=== PATIENT | male | born 1955 | race Two or more races ===

== ENCOUNTER 2023-08-12 05:46 | Emergency (ER) | payer MEDICARE, OTHER, SELFPAY ==
[2023-08-12 05:51] VITALS: BP 163/107
[2023-08-12] MEDS: TORADOL 15 MG IV (06:52)
[2023-08-12] MEDS: DILAUDID 0.5 MG IV ×2 (06:53→08:04)
[2023-08-12 07:32] VITALS: BP 138/87
--- NOTE | 2023-08-12 07:53 | ED.GENMED ---
History of Present Illness
General
Chief Complaint: Back Pain
Time Seen by Provider: 08/12/23 06:16
Travel History
Have you had any contact with someone who has COVID-19?: No
Do you have any symptoms of coronavirus? Fever > 100 degrees, chills, cough, shortness of breath, sore throat, loss of taste or smell, muscle aches, or headache?: No
History of Present Illness
History of Present Illness:
67-year-old male started yesterday with right-sided back pain some radiation at times to the right leg. No bowel or bladder issues. None no numbness tingling or weakness no fever no abdominal pain. Long history of back issues
Past History
Past History
ED Past Medical History: HTN, IDDM, Psychiatric (Anxiety, ) and Other (Sleep apnea, Stomach Ulcers, Hiatal hernia)
ED Past Surgical History: Orthopedic (R and L hip replacement, Left hand tendon repair, Right and left knee surgery, Right shoulder Surgery X 2, Vertebral spacer placed and then removed, Spinal stimulator. Right Carpal tunnel) and Other (Previous
trauma surgery, Incisional surgery for hernia X 8)
Social History
Tobacco: Former smoker
Alcohol: None
Drug: Narcotics
Personal:
Living: with family
Review of Systems
Review of Systems
All Other Systems: Not applicable
Constitutional: Denies fever
ABD/GI: Reports no symptoms
: Reports no symptoms
Phy Exam
Physical Exam
Physical Exam:
GENERAL: Alert and oriented in no apparent distress, but appears mildly uncomfortable
EYE: Orbits normal.
NECK: Supple
CARDIAC: Regular rate and rhythm without any obvious murmurs.
LUNGS: Clear breath sounds,normal
ABDOMEN: Soft, without focal tenderness or distention
NEUROLOGICAL: Alert and oriented , grossly non-focal
SKIN: Warm and dry, no rash or lesion, no discoloration, skin intact.
MUSCULOSKELETAL: No edema,no deformity.Good color. Right lower paralumbar tenderness near the SI joint. Stimulator site appears well without erythema swelling or drainage patient's right leg feels better flexed at the hip. Good distal strength.
Good distal color. Good distal pulses. No weakness. Able to ambulate but slightly hunched over and feels better in flexion and extension at the hip
PSYCH: Normal and appropriate interaction.
Course
Orders/Labs/Results
Orders:
Orders
08/12/23 06:46
IV Insert/Care/Rem.- Treatment PRN
HYDROmorphone [Dilaudid] 0.5 mg IV NOW STA
Ketorolac [Toradol] 15 mg IV NOW STA
Hip, Right 2-3 Views [CR Hip - RT w/wo Pel 2-3 Vw*] Urgent
Comment:
Reason For Exam: Nontraumatic low back pain
Include a pelvis x-ray?: Yes
Lumbar Spine, 2 or 3 View [CR Lumbar Spine 2 Or 3 Views] Urgent
Comment:
Reason For Exam: Nontraumatic low back pain
08/12/23 07:53
HYDROmorphone [Dilaudid] 0.5 mg IV NOW STA
Vital Signs
Initial and Last Documented VS:
Initial Vital Signs
Temp Pulse Resp BP Pulse Ox
97.6 F 82 20 163/107 98
08/12/23 05:51 08/12/23 05:51 08/12/23 05:51 08/12/23 05:51 08/12/23 05:51
Last Documented Vital Signs
Temp Pulse Resp BP Pulse Ox
97.6 F 95 16 138/87 99
08/12/23 05:51 08/12/23 07:32 08/12/23 07:32 08/12/23 07:32 08/12/23 07:32
*Critical Care Note
Total Time (30-74mins, 75-104mins- exclusive of procedures): Not Applicable
Update Note
Update Note:
0755.... Patient's symptoms are moderately improved. He is currently sitting in the chair in no distress. Clearly positional symptoms. I do not feel this is a kidney issue or other intra-abdominal process. No fever no bowel or bladder issues no
acute neurologic symptoms. Pain management follow-up.
ED Attending Note
-
Portions of this chart may have been created with voice recognition software.� Occasional wrong word or��sound alike� substitutions may have occurred due to the inherent limitations of voice recognition software.
Discharge Plan
Departure
Patient Disposition: Home (Routine Discharge)
Date of Disposition: 08/12/23
Time of Disposition: 07:54
Patient with high blood pressure during this ER visit?: Yes
Discharge Problem:
Right lower back pain, Suspect radiculopathy
Instructions: Low Back Pain (DC), Radiculopathy (DC), BLOOD PRESSURE
Prescriptions:
New
oxycodone-acetaminophen [Percocet] 5-325 mg tablet
1 tab PO Q4H PRN (Reason: Pain) Qty: 14 0RF
No Action
tamsulosin 0.4 mg Capsule
0.4 mg PO HS
paroxetine HCl [Paxil] 30 mg Tablet
30 mg PO DAILY
metformin 1,000 mg Tablet
1,000 mg PO BID@0800,1700
Hold Instructions: Resume on 08/26/22.
Humalog Mix 50-50 KwikPen 100 unit/mL (50-50) Insulin Pen
25 unit SC NOON
Patient Comments:
took 8 units 01/19/23
Humalog Mix 50-50 KwikPen 100 unit/mL (50-50) Insulin Pen
30 unit SC HS
Patient Comments:
took 5 units 01/19/23
hydrochlorothiazide 25 mg Tablet
25 mg PO DAILY Qty: 0 0RF
Rx Instructions:
HOLD if systolic blood pressure <130 while on post-surgical narcotics.
benazepril 40 mg Tablet
40 mg PO DAILY Qty: 1 0RF
Rx Instructions:
HOLD if systolic blood pressure <130 while on post-surgical narcotics.
Ozempic 1 mg/dose (2 mg/1.5 mL) Pen Injector
1 mg SC QWEEK
magnesium citrate
1 dose PO DAILY
Humalog Mix 50-50 KwikPen 100 unit/mL (50-50) insulin pen
25 unit SC DAILY@0700
Patient Comments:
took 15 units 01/19/23
aspirin [Baby Aspirin] 81 mg Tablet,Chewable
81 mg PO DAILY
pravastatin 20 mg Tablet
20 mg PO HS
gabapentin 300 mg capsule
600 mg PO BID
Patient Comments:
took 600 mg po last HS
Rx Instructions:
Home medication. Can increase up to 3x daily for nerve/'burning' pain.
cetirizine [Zyrtec] 10 mg Tablet
10 mg PO DAILY
cyanocobalamin (vitamin B-12) 1,000 mcg Tablet
1,000 mcg PO DAILY
apple cider vinegar 600 mg Capsule
1,200 mg PO DAILY
cholecalciferol (vitamin D3) [Vitamin D3] 50 mcg (2,000 unit) Capsule
50 mcg PO DAILY
turmeric root extract 500 mg Capsule
1,000 mg PO DAILY
Dynamic Brain
1 dose PO BID
ginkgo biloba
120 mg PO DAILY
cefadroxil 500 mg capsule
500 mg PO BID Qty: 14 0RF
Rx Instructions:
Start night of discharge and continue twice a day for 1 week post-surgery.
mupirocin 2 % ointment
1 applic intranasal BID Qty: 1 0RF
Referrals:
Maulik Scherer MD [Family Provider] - Follow up in 2-3 days
Activity Restrictions/Additional Instructions:
Follow-up closely with your primary physician pain management physician and back specialist.
Return with increasing pain fever numbness tingling weakness or any other concerning symptoms
Interventions
Interventions:
*Risk Screen - Suicide Last Done: 08/12/23 05:51
*General Assessment Last Done: 08/12/23 07:14
*Neglect/Abuse Screening Last Done: 08/12/23 05:51
ED- Fall Risk Assessment Last Done: 08/12/23 06:30
*ED COVID-19 Vaccine History Last Done: 08/12/23 05:51
ED-Musculoskeletal Assessment Last Done: 08/12/23 06:30
== END 2023-08-12 08:19 | disposition home or self-care (01) ==
LOC: EMR 05:46
PROVIDERS: EMERGENCY PHYSICIAN Emergency Medicine; FAMILY PHYSICIAN Family Medicine
DX: M54.50 Low back pain, unspecified (principal); I10 Essential (primary) hypertension; Z87.891 Personal history of nicotine dependence
CPT/HCPCS: 99284; 96374; 96375; 96376; 72100; 73502

== ENCOUNTER 2023-08-25 06:14 | Day surgery (SDC) | payer MEDICARE, OTHER, SELFPAY ==
--- NOTE | 2023-07-21 10:53 | CM ---
Addendum entered by Autumn Santizo 08/17/23 13:32:
Spoke again with patient. He has not yet viewed the online education program and was reminded to do so before surgery.
Original Note:
Patient is scheduled for an elective L TKR on 08/25/23- he is a same day patient. Spoke with patient prior to surgery. Patient had a L THR (December 2022) and R THR at (September 2022) at ; both as a same day patient. Reintroduced role of Orthopedic
Navigator. Patient reports that he lives with his in a two story home. There is one step to enter. Patient has a first floor set. He currently functions independently and uses a cane. He also has a cpap, hip kit, shower seat and rolling walker.
He had services through [facility] after his prior THRs. PCP is Maulik Scherer.
Discussed orthopedic program and post surgical plans. Reviewed that he will have [facility] services initially (medicare.gov website and ratings reviewed) and will then start outpatient PT. Patient selects [facility] (face sheet faxed to [facility] to facilitate
confirmation of benefits) for his home care needs and will go to [facility] for outpatient PT.
Patient is in agreement with plan and states that his will be home with him.
Patient will complete online education.
Plan: Orthopedic Navigator will remain available to assist with the care of patient and will reassess discharge needs after surgery.
--- NOTE | 2023-08-03 11:11 | HPS.HSE ---
Family Physician
-
Family Physician: Maulik Scherer
Chief Complaint
-
Advanced primary osteoarthritis of the left knee. Same-day surgery.
History of Present Illness
The patient is a 67-year-old morbidly obese male presenting today for advanced primary osteoarthritis of the left knee. The patient previously underwent a right total hip arthroplasty in September 2022 and a left total hip arthroplasty in December [address] Darin Thomas secondary to advanced osteoarthritis. He returns to [facility] today with complaints of significant left knee pain associated with this diagnosis. He notes that his current left knee pain is greatly interfering with his
activities of daily living and is overall impacting his quality of life. He has tried and failed multiple conservative treatment measures in the past for his left knee pain. These conservative treatment measures include physical therapy,
self-directed therapeutic exercises, activity modification, attempted weight loss, injection therapy, medical management with Tylenol and NSAIDs, bracing, and the application of ice and/or heat. Recent x-ray findings of the left knee demonstrated
[id number] osteoarthritis. He was determined to be in need of a left total knee arthroplasty. He denies any current complaints today such as chest pain, shortness of breath, palpitations, nausea, vomiting, diarrhea, lightheadedness, dizziness,
cough, sore throat, or fever.
Medical History
Past Medical History
Past Medical History: Reports Other
Additional Past Medical History:
1. Osteoarthritis, status post right total hip arthroplasty, 09/2022, and left total hip arthroplasty, 12/2022, by Dr. Darin Thomas.
2. Hypertension.
3. PACs and PVCs, asymptomatic.
4. First-degree AV block.
5. Sleep apnea, inconsistent with BiPAP.
6. Insulin-dependent diabetes with neuropathy, hemoglobin A1c 7.0.
7. GERD.
8. Hiatal hernia.
9. Colon polyps.
10. Diverticulosis.
11. Hemorrhoids.
12. History of GI ulcers.
13. 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
14. Migraines.
15. Restless leg syndrome.
16. Balance difficulties.
17. Lumbar degenerative disc disease and stenosis, status post spinal stimulator.
18. Left carpal tunnel syndrome.
19. Chronic pain with previous opioid dependence, completing rehabilitation 08/2022 after opioid overdose.
20. Toxic metabolic encephalopathy, 08/17/2022, secondary to acute kidney injury and medicine-induced delirium.
21. BPH with LUTS.
22. Anxiety.
23. Depression.
24. Insomnia.
25. Hearing impairment bilaterally.
26. Morbid obesity, BMI 40.1.
27. History of tobacco abuse.
Past Surgical History: Reports Other
Additional Past Surgical History:
1. Right total hip arthroplasty, 09/2022, by Dr. Darin Thomas.
2. Left total hip arthroplasty, 12/2022, by Dr. Darin Thomas.
3. Left knee meniscectomy.
4. Right knee meniscectomy and ACL repair.
5. Right shoulder rotator cuff repair.
6. Right shoulder reconstruction.
7. Left hand tendon repair.
8. Right carpal tunnel release.
9. L2-L3 laminectomy and discectomy.
10. Spinal stimulator.
11. Spinal decompression.
12. Vertebral spacer and subsequent removal.
13. MILD procedure.
14. Exploratory laparotomy.
15. Multiple incisional hernia repairs with mesh.
16. Colonoscopy x4.
Social History
Tobacco: Former Smoker (He is a former one pack per day cigarette smoker who quit tobacco products altogether in 2002. )
Alcohol: None
Personal:
Living: Other (The patient lives in a two-story home with his spouse. He reports that his home has a first-floor main setup. )
Family History
Family History: Not pertinent
Allergies / Home Medications
Allergy/Medication List:
Home medications:
1. Aspirin 81 mg p.o. daily.
2. Benazepril 40 mg p.o. daily.
3. Gabapentin 600 mg p.o. twice a day.
4. Humalog 25 units subcutaneous daily.
5. Humalog 25 units subcutaneous at noon.
6. Humalog 30 units subcutaneous at bedtime.
7. Hydrochlorothiazide 25 mg p.o. daily.
8. Metformin 1000 mg p.o. twice a day.
9. Ozempic 1 mg subcutaneous weekly.
10. Pravastatin 20 mg p.o. at bedtime.
11. Tamsulosin 0.4 mg p.o. at bedtime.
12. Turmeric 1000 mg p.o. daily.
13. Apple cider vinegar 1200 mg daily.
14. Cetirizine 10 mg p.o. daily.
15. Cholecalciferol 50 mcg p.o. daily.
16. Cyanocobalamin 1000 mcg p.o. daily.
17. Dynamic brain 1 dose p.o. twice a day.
18. Ginkgo biloba 120 mg p.o. daily.
19. Magnesium citrate 1 dose p.o. daily.
Allergies: Amlodipine. Statins.
Review of Systems
-
A 12 point ROS was completed and negative except as noted: Yes
Physical Exam
Vital Signs
Blood pressure 121/84. Heart rate 72. Respirations 18. Pulse ox 97% on room air.
Height 5 feet, 7 inches. Weight 116.1 kg. BMI 40.1.
Physical Exam
General: Well Developed, Well Nourished and No Apparent Distress
HEENT: NormoCephalic, Moist mucous membranes, Atraumatic and PERRLA
Respiratory: Clear
Cardiac: Regular Rhythm
GI: Soft, Non Tender, Non Distended and Other (Morbidly obese. )
Musculoskeletal: Other (Left knee: positive warmth and effusion. Range of motion 1-110. Neutral alignment. Right knee: positive warmth and effusion. Range of motion 1-110. Neutral alignment. )
Skin: Warm and Dry
Neuro: AO x 3 and Nonfocal/grossly intact
Laboratory Results
-
DIAGNOSTIC STUDIES as of 08/03/2023: White blood cell count 7.5. Hemoglobin 14.6. Platelet count 203. Sodium 138. Potassium 5.0. BUN 25. Creatinine 1.1. Glucose 88. Hemoglobin A1c 7.0. Calcium 10.0. AST 29. ALT 23. Albumin 4.4. MRSA screen negative.
EKG provided by Cardiology.
Echocardiogram 01/31/2016: Normal left ventricular size, wall thickness and systolic function. Estimated ejection fraction is 55-60%. No significant valvular disease.
Impression/Plan
-
CLEARANCES:
1. Primary medical, Dr. Maulik Scherer, cleared.
� � Primary medical phone number: [phone].
2. Cardiology, Dr. Jhony Vann, cleared.
3. Dental waived.
�
IMPRESSION/PLAN:
1. Advanced primary osteoarthritis of the left knee in need of a left total knee arthroplasty by Dr. Darin Thomas on 08/25/2023. The benefits and risks of the procedure have been explained to the patient. The patient understands these risks and
wishes to proceed.
2. Deep vein thrombosis prophylaxis: Aspirin.
3. Insulin dependent diabetes: Humalog and Ozempic instructions were provided to the patient pre-operatively per his sat instructor, Dr. Sai Handy. He will lower his dosage of Humalog from 30 to 15 units the night prior to his surgery. He will
hold his Humalog altogether the morning of his procedure. Ozempic will be held 1 week prior to surgery. After his surgery, all of his medications can be taken normally.
4. Pain management: The patient has stable comorbidities as referenced by his primary care physician and blind hooker and is medically optimized to proceed as a Same-Day Surgery candidate on 08/25/2023. Due to his history of opioid dependence and
previous opioid overdose, we will defer post-procedural pain management to his plate painter, Dr. Rachana Walker of [facility]. Initially, he will take Oxycodone 10 mg p.o. every 8-12 hours as needed for moderate to
severe post-operative pain. Further tapered weekly dosing schedules of Oxycodone have been discussed between both the patient and Dr. Walker pre-operatively. He may also increase his Gabapentin to three times a day and include Tylenol 1000 mg p.o.
every 6 hours.
5. Morbid obesity and insulin-dependent diabetes: The patient is considered to be at an increased risk of post-operative infection due to his history of morbid obesity and insulin-dependent diabetes. Because of this, he will be prescribed Cefadroxil
500 mg p.o. twice a day for one week post-surgery for continued joint prophylaxis. Probiotic use will be highly encouraged while on this antibiotic.
Patient's phone number: [phone].
Patient's contact (Ashley Cazares - Spouse): [phone].
[2023-08-03 13:59] VITALS: BMI 40.1
[2023-08-03 14:17] LABS: Hematocrit 43.8 % (39.0-52.0); Hemoglobin 14.6 g/dL (13.0-18.0); Mean Corp Hgb Conc. 33.3 g/dL (33.0-37.0); Mean Corpuscular Hgb 28.9 pg (27.0-31.0); Mean Corpuscular Volume 86.7 fL (80.0-94.0); Mean Platelet Volume 11.3 fL (7.4-10.4); Platelet Count 203 10^3/uL (130-400); Red Blood Cell Count 5.05 10^6/uL (4.70-6.10); Red Cell Dist. Width 13.8 % (11.5-14.5); White Blood Cell Count 7.5 10^3/uL (4.8-10.8)
[2023-08-03 15:07] LABS: ALT (SGPT) 23 U/L (0-50); AST (SGOT) 29 U/L (17-59); Albumin 4.4 g/dl (3.5-5.0); Alkaline Phosphatase 75 U/L (38-126); Blood Urea Nitrogen 25 mg/dl (9-20); Carbon Dioxide 30 mmol/L (22-30); Chloride 103 mmol/L (98-107); Estimated Creatinine Clearance 77 ml/min; Glucose 88 mg/dl (70-99); Sodium 138 mmol/L (135-145); Total Bilirubin 0.6 mg/dl (0.2-1.3); Total Protein 7.4 g/dl (6.3-8.2); eGFR > 60.00
[2023-08-03 15:29] VITALS: BMI 40.1
[2023-08-25] VITALS (13 sets, daily range): BP systolic 109–182; BP diastolic 62–154; PULSE 104; O2SAT 96; BMI 40.1
[2023-08-25 06:29] LABS: Glucose - Point of Care 104 mg/dl (70-99)
[2023-08-25] MEDS: NORMOSOL-R 1000 IV (06:33)
[2023-08-25] MEDS: CELEBREX 200 MG PO (06:33)
[2023-08-25] MEDS: TYLENOL 650 MG PO (06:33)
[2023-08-25 08:14] LABS: Glucose - Point of Care 90 mg/dl (70-99)
[2023-08-25] MEDS: SUBLIMAZE 50 MCG IV (08:15)
[2023-08-25] MEDS: SUBLIMAZE 25 MCG IV (08:36)
[2023-08-25 09:27] LABS: Glucose - Point of Care 123 mg/dl (70-99)
[2023-08-25] MEDS: ROXICODONE 5 MG PO ×2 (09:30→10:58)
--- NOTE | 2023-08-25 09:52 | CM ---
Patient had planned L TKR today. Met with patient and his at bedside to review discharge plans. Patient will be returning home today with services through [facility]. On Wednesday, 08/29, patient will start outpatient PT at [facility].
Patient has his rolling walker here with him.
PT and [facility] were kept updated as to progress and discharge plans.
[2023-08-25 10:36] LABS: Glucose - Point of Care 264 mg/dl (70-99)
== END 2023-08-25 11:45 | disposition home health service (06) ==
LOC: SDS 06:14
PROVIDERS: ATTENDING PHYSICIAN Orthopaedic Surgery; FAMILY PHYSICIAN Family Medicine; OTHER PHYSICIAN Physician Assistant
DX: M17.12 Unilateral primary osteoarthritis, left knee (principal)
CPT/HCPCS: 27447; 36415; 73560; 80053; 82962; 83036; 85027; 87070; 93005; 97116; 97161; C1713; C1776

== ENCOUNTER → 2023-09-28 07:51 | Outpatient (REF) | payer MEDICARE, OTHER, SELFPAY | LOC: PAVMRI 07:51 | PROVIDERS: ATTENDING PHYSICIAN Anesthesiology Pain Medicine; FAMILY PHYSICIAN Family Medicine | DX: M54.12 Radiculopathy, cervical region (principal); M96.1 Postlaminectomy syndrome, not elsewhere classified; M54.16 Radiculopathy, lumbar region; R29.898 Other symptoms and signs involving the musculoskeletal system | CPT/HCPCS: 72141; 72158; A9575 ==

== ENCOUNTER → 2024-01-07 13:00 | Outpatient (REF) | payer MEDICARE, OTHER, SELFPAY | LOC: PAVMRI 13:00 | PROVIDERS: ATTENDING PHYSICIAN Anesthesiology Pain Medicine; FAMILY PHYSICIAN Family Medicine | DX: M54.16 Radiculopathy, lumbar region (principal) | CPT/HCPCS: 72148 ==

== ENCOUNTER → 2024-01-26 12:12 | Outpatient (REF) | payer MEDICARE, OTHER, SELFPAY | LOC: PAVMRI 12:12 | PROVIDERS: ATTENDING PHYSICIAN Anesthesiology Pain Medicine; FAMILY PHYSICIAN Family Medicine | DX: M54.14 Radiculopathy, thoracic region (principal) | CPT/HCPCS: 72146 ==

== ENCOUNTER → 2024-03-24 06:57 | Outpatient (REF) | payer MEDICARE, OTHER, SELFPAY | LOC: DHCBC/DCA 06:57 | PROVIDERS: ATTENDING PHYSICIAN Internal Medicine Cardiovascular Disease; FAMILY PHYSICIAN Family Medicine | DX: Z01.810 Encounter for preprocedural cardiovascular examination (principal) | CPT/HCPCS: 78452; 93017; A9500; J2785 ==

== ENCOUNTER → 2024-08-24 09:43 | Outpatient (REF) | payer MEDICARE, OTHER, SELFPAY | LOC: PAVMRI 09:43 | PROVIDERS: ATTENDING PHYSICIAN Neurological Surgery; FAMILY PHYSICIAN Family Medicine | DX: M54.16 Radiculopathy, lumbar region (principal); Z98.890 Other specified postprocedural states | CPT/HCPCS: 72148; 76014; 76015 ==

== ENCOUNTER → 2025-02-16 12:28 | Outpatient (REF) | payer MEDICARE, OTHER, SELFPAY | LOC: HWRAD 12:28 | PROVIDERS: ATTENDING PHYSICIAN Student in an Organized Health Care Education/Training Program; FAMILY PHYSICIAN Family Medicine | DX: M15.9 Polyosteoarthritis, unspecified (principal); M19.90 Unspecified osteoarthritis, unspecified site; M25.641 Stiffness of right hand, not elsewhere classified | CPT/HCPCS: 73130; 73630 ==

== ENCOUNTER → 2025-02-19 13:55 | Outpatient (REF) | payer MEDICARE, OTHER, SELFPAY | LOC: RAD 13:55 | PROVIDERS: ATTENDING PHYSICIAN Student in an Organized Health Care Education/Training Program; FAMILY PHYSICIAN Family Medicine | DX: S32.010A Wedge compression fracture of first lumbar vertebra, initial encounter for closed fracture (principal) | CPT/HCPCS: 77080 ==

== ENCOUNTER → 2025-04-18 10:40 | Outpatient (REF) | payer MEDICARE, OTHER, SELFPAY | LOC: RAD 10:40 | PROVIDERS: ATTENDING PHYSICIAN Student in an Organized Health Care Education/Training Program; FAMILY PHYSICIAN Family Medicine | DX: M06.041 Rheumatoid arthritis without rheumatoid factor, right hand (principal); M19.90 Unspecified osteoarthritis, unspecified site; M25.50 Pain in unspecified joint; M25.641 Stiffness of right hand, not elsewhere classified | CPT/HCPCS: 76881 ==